=== PATIENT | female | born 1965 | race Caucasian/White ===

== ENCOUNTER → 2017-04-12 | Outpatient (CLI) | payer OTHER ==
[~2017-04-12] MED LIST: CATAPRES 0.1MG0.1 MG PO; CIPRO500 MG PO; COZAAR50 MG PO; DIFLUCAN200 MG PO; ELAVIL 25 MG TA25 MG PO; GLUCOPHAGE500 MG PO; HYDROCHLOROTHIA25 MG PO; KLONOPIN TAB 00.5 MG PO; OMEPRAZOLE20 MG PO
== END ==
LOC: RAD 14:27
DX: M25.511 Pain in right shoulder (principal); M25.512 Pain in left shoulder
CPT/HCPCS: 73000; 73030

== ENCOUNTER 2017-04-18 15:13 | Emergency (ER) | payer OTHER | END 2017-04-18 17:08 | disposition home or self-care (01) | LOC: ER1 15:13 | DX: M10.9 Gout, unspecified (principal); E78.5 Hyperlipidemia, unspecified; I10 Essential (primary) hypertension; E11.9 Type 2 diabetes mellitus without complications; Z88.0 Allergy status to penicillin; Z88.5 Allergy status to narcotic agent; Z98.51 Tubal ligation status | CPT/HCPCS: 36415; 73610; 73630; 84550; 86140; 96372; 99283; J1100; J1885 ==

== ENCOUNTER → 2021-01-16 | Outpatient (CLI) | payer OTHER ==
[~2021-01-16] MED LIST changes: +CLOPIDOGREL75 MG PO; +COLCHICINE 0.60.6 MG PO; +COZAAR100 MG PO; +FIORICET TAB1 EA PO; +IBUPROFEN600 MG PO; +IMDUR ER TAB 3030 MG PO; +K-DUR TAB 10 M10 MEQ PO; +LASIX20 MG PO; +LIORESAL TAB 1010 MG PO; +NITROGLYCERIN0.4 MG SL; +NORVASC10 MG PO; +PAMELOR10 MG PO; +TENORMIN 50 MG50 MG PO; +VITAMIN D250000 UNIT PO; +Voltaren Gel 1 % TOP
== END ==
LOC: KOH-I 12:33
DX: M25.511 Pain in right shoulder (principal); M54.5 Low back pain; M48.07 Spinal stenosis, lumbosacral region; M47.816 Spondylosis without myelopathy or radiculopathy, lumbar region; M43.17 Spondylolisthesis, lumbosacral region; M48.061 Spinal stenosis, lumbar region without neurogenic claudication
CPT/HCPCS: 72110; 73030

== ENCOUNTER → 2021-02-07 | Outpatient (CLI) | payer OTHER | LOC: KOH-I 15:59 | DX: H34.212 Partial retinal artery occlusion, left eye (principal); I65.23 Occlusion and stenosis of bilateral carotid arteries | CPT/HCPCS: 93880 ==

== ENCOUNTER → 2021-02-13 | Outpatient (CLI) | payer OTHER | LOC: KOH-I 12:18 | DX: J40 Bronchitis, not specified as acute or chronic (principal); R06.02 Shortness of breath; R05 Cough | CPT/HCPCS: 71046 ==

== ENCOUNTER → 2021-03-26 | Outpatient (CLI) | payer OTHER | LOC: EXRD 13:45 | DX: R22.41 Localized swelling, mass and lump, right lower limb (principal) | CPT/HCPCS: 93971 ==

== ENCOUNTER 2021-07-14 14:50 | Emergency (ER) | payer OTHER ==
[2021-07-14 15:46] LABS: HEMOGLOBIN 14.7 gm/dl (12.3-15.3); RED BLOOD COUNT 5.15 M/UL (4.00-5.10); WHITE BLOOD COUNT 10.3 K/UL (4.5-11.0)
[2021-07-14 16:11] LABS: BUN/CREATININE RATIO 11 (0-10)
== END 2021-07-14 21:45 | disposition left against medical advice (07) ==
LOC: ER1 14:50
PROVIDERS: Family Medicine
DX: U07.1 COVID-19 (principal); F17.200 Nicotine dependence, unspecified, uncomplicated; I10 Essential (primary) hypertension; E11.9 Type 2 diabetes mellitus without complications; E07.9 Disorder of thyroid, unspecified; Z90.49 Acquired absence of other specified parts of digestive tract; Z90.89 Acquired absence of other organs
CPT/HCPCS: 36600; 71045; 80053; 82550; 82553; 82803; 83605; 84484; 85025; 85379; 85610; 87040; 93005; 96365; 96366; 96375; 99285; J0456; J0696; J1100; J2405; J7030

== ENCOUNTER → 2021-08-08 | Outpatient (CLI) | payer OTHER | LOC: KOH-I 11:55 | DX: J44.9 Chronic obstructive pulmonary disease, unspecified (principal); R91.8 Other nonspecific abnormal finding of lung field | CPT/HCPCS: 71046 ==

== ENCOUNTER → 2022-04-15 | Outpatient (CLI) | payer OTHER | LOC: KOH-I 08:30 | DX: R10.11 Right upper quadrant pain (principal); K76.0 Fatty (change of) liver, not elsewhere classified | CPT/HCPCS: 76700 ==